=== PATIENT | female | born 1990 | race Caucasian/White ===

== ENCOUNTER 2018-03-20 19:00 | Inpatient (IN) | payer BC, MEDICAID ==
[2018-03-20] MEDS ORDERED: Oxytocin/Lactated Ringers 10 UNIT/1,000 ML BAG IV SCH (23:45)
[2018-03-20] MEDS ORDERED: Nalbuphine 20 MG/ML 1 ML Syringe IVPUSH PRN (23:57)
[2018-03-20] MEDS ORDERED: Sodium Chloride 0.9% 10 ML Syringe FLUSH PRN (23:57)
[2018-03-21] MEDS: Lactated Ringers 1,000 ML IV SCH ×4 (01:04→16:25)
[2018-03-21] MEDS ORDERED: Oxytocin/Lactated Ringers 10 UNIT/1,000 ML BAG IV SCH (01:15)
--- NOTE | 2018-03-21 07:29 | PCM.LDHP ---
L&D History of Present Illness - General Date of Service: 03/20/18 Admit Problem/Dx: Patient Status Order with Admit Dx/Problem 03/20/18 19:50 Patient Status [ADT] Routine 03/21/18 03:33 Admission Status [Patient Status] [ADT] Routine Admission Diagnosis/Problem Admission Diagnosis/Problem 03/21/18 07:17 27-year-old 1 para 0 white female with nonspecific complaints of headache, nausea, lightheadedness, dizziness with blood pressures trending in the 140s to 150s upon initial evaluation in labor and delivery. Source of Information: Patient History Limitations: Reports: No Limitations - History of Present Illness Introduction:: Juliann is a 27-year-old 1 para 0 white female who is evaluated in labor and delivery for complaints of headache, nausea, dizziness, lightheadedness in late . She is 38-2/7 weeks gestational age with an CHRISTA of 04/01/2018 as determined by a 12-1/7 week ultrasound. Patient has had some borderline blood pressures in the clinic by her history and by record. He was offered induction of labor last week but declined. Reduced evaluation January showed borderline blood pressures at that time. This time patient is found to have 1+ pitting edema, hyperreflexia and bilateral lower extremities are 3+/4. Her laboratory testing however is essentially normal. Uric acid is 4.6. LFTs are within normal limits. Findings most probably consistent with early preeclampsia. 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 Last menstrual period 06/20/2017 was approximate. CHRISTA is set by ultrasound on 09/10/2017 at 12 weeks and 1 day and is 04/01/2018. Patient was seen on a regular basis throughout the course. She had a weight gain of approximately 72 pounds. Vital signs are stable until approximately 34-35 weeks at which time they were running in the high normal borderline range. Patient underwent ultrasound at approximately 20-24 weeks which was unremarkable and showed normal growth interval. Her course has been relatively unremarkable otherwise. laboratory testing blood is AB+ with a negative antibody screen. Her first hemoglobin was 14.0 platelets are 179,000. Her RPR is nonreactive as is her appetite is B surface antigen assay. Hepatitis C is negative as is HIV. Her chlamydia and gonorrhea assays were both negative. Second trimester labs showed hemoglobin 12.5 g/dL. Platelets are 168,000. Her 1 hour glucose was normal at 117. TSH done on 01/27/2016 was 1.370normal. Her group B strep screen was negative. She does have a positive AMA titer at 1:80 with homogeneous staining pattern. Sedimentation rate was 11. QDNA antibody less than onenormal. Screen was normal. SSA and SSB assays were both negative. Allergies none Medications: 1. vitamins Past medical history: 1. Questionable autoimmune diseasenot substantiated by testing 2. Suicide attempt with overdose of Ambien Past surgical history: Unremarkable Family history mother is alive and well. Father with prediabetes. Paternal grandmother with history of depression. Maternal great-grandmother with breast cancer history. Paternal grandfather with parkinsonism. Paternal grandmother with dementia. Social history: Patient is single. She is a [id number] patient and she does not use any significant loss of alcohol, drugs or tobacco. Significant other works in the [employer]. They live in [facility]. Review of systems: In general patient reports dizziness, lightheadedness, headaches, just not feeling well. She reports some vision changes also. Skin: Negative Lungs: No infectious symptoms or shortness of breath Cardiovascular: No chest pain or exercise intolerance Breasts: No lumps, changes in size, pain, dimpling, discharge or axillary or supraclavicular concerns. Is associated . GI: Negative : Negative, baby is active. Occasional contractions. Musculoskeletal: Negative Neurological: Negative Physical exam: In general patient is well-developed, well-nourished, overweight white female in no acute distress. She is alert and oriented 3, appears pleasant and of stated age. Skin is warm and dry without lesions. Patient has 1+ pitting edema bilateral lower extremities with left greater than right. HEENT, neck and back within normal limits thyromegaly is noted. Breast exam is deferred. Lungs are clear with good breath sounds in all lung taylor. Cardiovascular exam shows regular and rhythm without murmurs. Abdomen is doing Seth for what consistent with term . Cervix is 2 cm dilated, 90% effaced, -3 station, mid position to mildly posteriorly position, soft. Baby is in cephalic presentation. Extremities show edema. Neurological exam shows 3+/4 deep tendon reflexes lower extremities. 2+/4 bilaterally upper extremities. 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: Psychiatric History: Reports: Anxiety, Depression, Other (See Below) Other Psychiatric History: insomina Social & Family History - Family History Family Medical History: Noncontributory - Tobacco Use Smoking Status *Q: Never Smoker - Recreational Drug Use Recreational Drug Use: No H&P Review of Systems - Review of Systems: Review Of Systems: See Below L&D Exam - Exam Exam: See Below - Vital Signs Weight: 104.326 kg - Patient Data Lab Results Last 24 hrs: Laboratory Results - last 24 hr 03/20/18 03/20/18 03/20/18 Range/Units 20:20 20:20 20:30 WBC 9.86 (3.98-10.04) K/mm3 RBC 3.63 L (3.98-5.22) M/mm3 Hgb 11.5 (11.2-15.7) gm/L Hct 34.1 (34.1-44.9) % MCV 93.9 (79.4-94.8) fl MCH 31.7 (25.6-32.2) pg MCHC 33.7 (32.2-35.5) g/dl RDW Std Deviation 44.6 (36.4-46.3) fL Plt Count 175 L (182-369) K/mm3 MPV 9.7 (9.4-12.3) fl Neut % (Auto) 70.9 (34.0-71.1) % Lymph % (Auto) 19.2 L (19.3-51.7) % [place] % (Auto) 8.0 (4.7-12.5) % Eos % (Auto) 1.1 (0.7-5.8) Baso % (Auto) 0.1 (0.1-1.2) % Neut # (Auto) 6.99 H (1.56-6.13) K/mm3 Lymph # (Auto) 1.89 (1.18-3.74) K/mm3 [place] # (Auto) 0.79 H (0.24-0.36) K/mm3 Eos # (Auto) 0.11 (0.04-0.36) K/mm3 Baso # (Auto) 0.01 (0.01-0.08) K/mm3 BUN 12 (7-18) mg/dL Creatinine 0.6 (0.55-1.02) mg/dL Est Cr Clr Drug Dosing 128.98 mL/min Estimated GFR (MDRD) > 60 (>60) mL/min Uric Acid 4.6 (2.6-6.0) mg/dL AST 23 (15-37) U/L ALT 27 (14-59) U/L Lactate Dehydrogenase 202 (81-234) U/L Urine Color Yellow (Yellow) Urine Appearance Slt cloudy H (Clear) Urine pH 6.0 (5.0-8.0) Ur Specific [place] 1.025 (1.005-1.030) Urine Protein Negative (Negative) Urine Glucose (UA) Negative (Negative) Urine Ketones Negative (Negative) Urine Occult Blood Trace-lysed H (Negative) Urine Nitrite Negative (Negative) Urine Bilirubin Negative (Negative) Urine Urobilinogen 0.2 (0.2-1.0) Ur Leukocyte Esterase 1+ H (Negative) Result Diagrams: 03/20/18 20:20 03/20/18 20:20 Problem List Initiated/Reviewed/Updated: Yes Orders Last 24hrs: Active Orders 24 hr Category Date Time Status Admission Status [Patient Status] [ADT] Routine ADT 03/21/18 03:33 Active Patient Status [ADT] Routine ADT 03/20/18 19:50 Active Activity as Tolerated [RC] PFP Care 03/20/18 23:57 Active Communication Order [RC] ASDIRECTED Care 03/20/18 23:57 Active Notify Provider [RC] PFP Care 03/20/18 23:57 Active Notify Provider [RC] PRN Care 03/20/18 23:57 Active Peripheral IV Care [RC] . DIRECTED Care 03/20/18 23:57 Active Vital Signs [RC] PER UNIT ROUTINE Care 03/20/18 19:50 Active RAPID PLASMA REAGIN,RPR [CHEM] Routine Lab 03/20/18 20:20 Received Lactated Ringers [Ringers, Lactated] 1,000 ml Med 03/20/18 23:45 Active IV ASDIRECTED Nalbuphine [Nubain] Med 03/20/18 23:57 Active 10 mg IVPUSH Q2H PRN Oxytocin/Lactated Ringers [Pitocin in LR 10 Units/1,000 Med 03/20/18 23:45 Active ML] 10 unit in 1,000 ml IV .CONTINUOUS Oxytocin/Lactated Ringers [Pitocin in LR 10 Units/1,000 Med 03/21/18 01:15 Active ML] 10 unit in 1,000 ml IV TITRATE Sodium Chloride 0.9% [Saline Flush] Med 03/20/18 23:57 Active 10 ml FLUSH ASDIRECTED PRN Electronic Heart Tones Ext w TOCO [WOMSER] Oth 03/20/18 23:57 Ordered Routine Electronic Heart Tones Internal [WOMSER] Per Unit Oth 03/20/18 23:57 Ordered Routine PIH Panel [OM.PC] Stat Oth 03/20/18 19:50 Ordered Peripheral IV Insertion Adult [OM.PC] Routine Oth 03/20/18 23:57 Ordered Resuscitation Status Routine Resus Stat 03/20/18 19:50 Ordered Medication Orders Lactated Ringer's (Ringers, Lactated) 1,000 mls @ 100 mls/hr IV ASDIRECTED ROCAEL Last Admin: 03/21/18 06:44 Dose: 100 mls/hr Infusion: 03/21/18 06:44 Dose: 100 mls/hr Admin: 03/21/18 01:04 Dose: 100 mls/hr Oxytocin/Lactated Ringer's (Pitocin In Lr 10 Units/1,000 Ml) 10 unit in 1,000 mls @ 500 mls/hr IV .CONTINUOUS ROCAEL Oxytocin/Lactated Ringer's (Pitocin In Lr 10 Units/1,000 Ml) 10 unit in 1,000 mls @ 12 mls/hr IV TITRATE ROCAEL; Protocol Last Titration: 03/21/18 06:07 Dose: 12 munits/min, 72 mls/hr Titration: 03/21/18 04:15 Dose: 10 munits/min, 60 mls/hr Titration: 03/21/18 03:27 Dose: 8 munits/min, 48 mls/hr Titration: 03/21/18 02:30 Dose: 6 munits/min, 36 mls/hr Titration: 03/21/18 02:03 Dose: 4 munits/min, 24 mls/hr Admin: 03/21/18 01:05 Dose: 2 munits/min, 12 mls/hr Nalbuphine HCl (Nubain) 10 mg IVPUSH Q2H PRN PRN Reason: pain Sodium Chloride (Saline Flush) 10 ml FLUSH ASDIRECTED PRN PRN Reason: Keep Vein Open Assessment/Plan Comment:: 1. 38-2/7 week intrauterine upon initial evaluation in labor and delivery for symptoms of headache, dizziness, vision changes, lightheadedness and "not feeling well ". Moderately elevated blood pressures upon initial evaluation in labor and delivery along with increased deep tendon reflexes and 1 + pitting edema findings consistent with preeclampsia without severe features. 2. Patient plans to breast-feed 3. Rubella immune 4. Patient desires epidural in labor and delivery. Plan: 1. With clinical signs and symptoms along with the trend towards elevated blood pressure seen in clinic would recommend induction of labor. The process, risks, benefits, alternatives of care and follow-up were discussed in detail patient. She appears understand and wishes to proceed. Pitocin with eventual artificial rupture membranes appears to be a very viable option of induction 2. Breast-feeding is planned for . 3. Epidural as desired per patient 4. Routine labor care. Monitor blood pressures closely.
[2018-03-21] MEDS ORDERED: fentaNYL 100 MCG/2 ML SDV EPIDUR PRN (07:35)
[2018-03-21] MEDS ORDERED: ePHEDrine 50 MG/ML SDV IVPUSH PRN (07:35)
[2018-03-21] MEDS ORDERED: diphenhydrAMINE 50 MG/ML SDV IVPUSH PRN (07:35)
--- NOTE | 2018-03-21 07:35 | PCM.SN ---
- Free Text/Narrative Note: Labor note: Patient is slowly progressing. Her cervix is now 3 cm, 100% effaced, -2 station , anterior position, cephalic presentation. Artificial rupture membranes undertaken. Resultant clear amniotic fluid large amounts. heart tones were generally reassuring. Patient is having contractions approximately every 3- 5 minutes. Pitocin was at 12 mU/mL. Assessment: 1. 38-3/7 week intrauterine , blood pressure elevation upon admission with increased deep tendon reflexes, +1 pitting edema which persists and symptoms consistent with preeclampsia without severe features Plan: 1. Continue induction of labor. Anticipate normal spontaneous vaginal delivery. 2. Epidural when necessary per patient desire
[2018-03-21] MEDS ORDERED: Bupivacaine/fentaNYL/NS 100 ML Bag EPIDUR SCH (07:45)
--- NOTE | 2018-03-21 08:05 | PCM.PREANE ---
Preanesthetic Assessment - Anesthesia/Transfusion/Family Hx Anesthesia History: No Prior Anesthesia Family History of Anesthesia Reaction: No Transfusion History: No Prior Transfusion(s) - Review of Systems General: No Symptoms Pulmonary: Cough Cardiovascular: Palpitations Gastrointestinal: Abdominal Pain (contractions) Neurological: Numbness (left and right leg with ) Other: Reports: None - Physical Assessment Pulse: 103 O2 Sat by Pulse Oximetry: 98 Respiratory Rate: 18 Blood Pressure: 134/60 Temperature: 36.3 C Height: 1.65 m Weight: 104.326 kg ASA Class: 2 Mental Status: Alert & Oriented x3 Airway Class: Mallampati = 1 Dentition: Reports: Normal Dentition Thyro-Mental Finger Breadths: 3 Mouth Opening Finger Breadths: 3 ROM/Head Extension: Full Lungs: Clear to Auscultation, Normal Respiratory Effort Cardiovascular: Regular Rate, Regular Rhythm - Lab Values: Laboratory Last Values WBC 9.86 K/mm3 (3.98-10.04) 03/20/18 20:20 RBC 3.63 M/mm3 (3.98-5.22) L 03/20/18 20:20 Hgb 11.5 gm/L (11.2-15.7) 03/20/18 20:20 Hct 34.1 % (34.1-44.9) 03/20/18 20:20 MCV 93.9 fl (79.4-94.8) 03/20/18 20:20 MCH 31.7 pg (25.6-32.2) 03/20/18 20:20 MCHC 33.7 g/dl (32.2-35.5) 03/20/18 20:20 RDW Std Deviation 44.6 fL (36.4-46.3) 03/20/18 20:20 Plt Count 175 K/mm3 (182-369) L 03/20/18 20:20 MPV 9.7 fl (9.4-12.3) 03/20/18 20:20 Neut % (Auto) 70.9 % (34.0-71.1) 03/20/18 20:20 Lymph % (Auto) 19.2 % (19.3-51.7) L 03/20/18 20:20 [place] % (Auto) 8.0 % (4.7-12.5) 03/20/18 20:20 Eos % (Auto) 1.1 (0.7-5.8) 03/20/18 20:20 Baso % (Auto) 0.1 % (0.1-1.2) 03/20/18 20:20 Neut # (Auto) 6.99 K/mm3 (1.56-6.13) H 03/20/18 20:20 Lymph # (Auto) 1.89 K/mm3 (1.18-3.74) 03/20/18 20:20 [place] # (Auto) 0.79 K/mm3 (0.24-0.36) H 03/20/18 20:20 Eos # (Auto) 0.11 K/mm3 (0.04-0.36) 03/20/18 20:20 Baso # (Auto) 0.01 K/mm3 (0.01-0.08) 03/20/18 20:20 BUN 12 mg/dL (7-18) 03/20/18 20:20 Creatinine 0.6 mg/dL (0.55-1.02) 03/20/18 20:20 Est Cr Clr Drug Dosing 128.98 mL/min 03/20/18 20:20 Estimated GFR (MDRD) > 60 mL/min (>60) 03/20/18 20:20 Uric Acid 4.6 mg/dL (2.6-6.0) 03/20/18 20:20 AST 23 U/L (15-37) 03/20/18 20:20 ALT 27 U/L (14-59) 03/20/18 20:20 Lactate Dehydrogenase 202 U/L (81-234) 03/20/18 20:20 Urine Color Yellow (Yellow) 03/20/18 20:30 Urine Appearance Slt cloudy (Clear) H 03/20/18 20:30 Urine pH 6.0 (5.0-8.0) 03/20/18 20:30 Ur Specific [place] 1.025 (1.005-1.030) 03/20/18 20:30 Urine Protein Negative (Negative) 03/20/18 20:30 Urine Glucose (UA) Negative (Negative) 03/20/18 20:30 Urine Ketones Negative (Negative) 03/20/18 20:30 Urine Occult Blood Trace-lysed (Negative) H 03/20/18 20:30 Urine Nitrite Negative (Negative) 03/20/18 20:30 Urine Bilirubin Negative (Negative) 03/20/18 20:30 Urine Urobilinogen 0.2 (0.2-1.0) 03/20/18 20:30 Ur Leukocyte Esterase 1+ (Negative) H 03/20/18 20:30 - Allergies Allergies/Adverse Reactions: Allergies Allergy/AdvReac Type Severity Reaction Status Date / Time No Known Allergies Allergy Verified 03/06/18 22:32 - Anesthesia Plan Pre-Op Medication Ordered: None - Acknowledgements Anesthesia Type Planned: Epidural Pt an Appropriate Candidate for the Planned Anesthesia: Yes Alternatives and Risks of Anesthesia Discussed w Pt/Guardian: Yes Pt/Guardian Understands and Agrees with Anesthesia Plan: Yes PreAnesthesia Questionnaire - Past Health History Medical/Surgical History: Denies Medical/Surgical History Cardiovascular History: Reports: Other (See Below) Other Cardiovascular History: Tachycardia of unknown cause Gastrointestinal History: Reports: GERD W[employer] 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: Psychiatric History: Reports: Anxiety, Depression, Other (See Below) Other Psychiatric History: insomina - SUBSTANCE USE Smoking Status *Q: Never Smoker Tobacco Use Within Last Twelve Months: No Recreational Drug Use History: No - HOME MEDS Home Medications: Home Meds FLUoxetine [PROzac] 1 tab DAILY 03/21/18 [History] Pnv No.95/Ferrous Fum/Folic AC [ Caplet] 1 each PO 03/21/18 [History] - CURRENT (IN HOUSE) MEDS Current Meds: Current Medications Diphenhydramine HCl (Benadryl) 25 mg IVPUSH Q6H PRN PRN Reason: Itching Ephedrine Sulfate (Ephedrine Sulfate) 5 mg IVPUSH ASDIRECTED PRN PRN Reason: HYPOTENTSION Fentanyl (Sublimaze) 100 mcg EPIDUR Q3H PRN PRN Reason: Pain Last Admin: 03/21/18 07:57 Dose: 100 mcg Fentanyl/Bupivacaine HCl (Fentanyl/Bupivacaine/Ns 2 Mcg-0.125% 100 Ml) 100 ml EPIDUR ASDIRECTED ROCAEL Last Admin: 03/21/18 07:57 Dose: 100 ml Lactated Ringer's (Ringers, Lactated) 1,000 mls @ 100 mls/hr IV ASDIRECTED ROCAEL Last Admin: 03/21/18 07:47 Dose: 100 mls/hr Oxytocin/Lactated Ringer's (Pitocin In Lr 10 Units/1,000 Ml) 10 unit in 1,000 mls @ 500 mls/hr IV .CONTINUOUS ROCAEL Oxytocin/Lactated Ringer's (Pitocin In Lr 10 Units/1,000 Ml) 10 unit in 1,000 mls @ 12 mls/hr IV TITRATE ROCAEL; Protocol Last Titration: 03/21/18 06:07 Dose: 12 munits/min, 72 mls/hr Nalbuphine HCl (Nubain) 10 mg IVPUSH Q2H PRN PRN Reason: pain Sodium Chloride (Saline Flush) 10 ml FLUSH ASDIRECTED PRN PRN Reason: Keep Vein Open
--- NOTE | 2018-03-21 11:03 | PCM.SN ---
- Free Text/Narrative Note: Juliann is a 27-year-old 1 now para 1001 white female who is admitted on the evening of 03/20/2018 for complaints of headache, vision changes," not feeling well", increased swelling, lightheadedness and dizziness. Blood pressures were found to be in 140s to 150s range systolically. heart tones were reassuring. Patient's hyperreflexic in the lower extremities 3+/4. Laboratory tests showed no evidence of abnormalities. Decision was made to proceed with induction of labor for suspected early preeclampsia. Procedure, risks, benefits, alternatives of care were discussed. Patient agreed to the induction. Patient labored slowly throughout the night with Pitocin. The head was brought down to about a -2 station on the morning of 03/21/2018. Artificial rupture membranes was then undertaken with resultant clear amniotic fluid. Patient progressed very quickly after that and achieved complete cervical dilation at approximately 1000 hrs. As the patient's adequate labor Pitocin was discontinued. Contractions continued every 2-3 minutes. She began pushing. The heart rate had multiple variable decelerations and a episode of bradycardia shortly before delivery. In retrospect this is felt probably due to head compression because of the rapid labor. Discussion of been held with patient concerning possible use of vacuum extraction if heart abnormalities occurred. The potential risks, benefits, returns of care including section and follow-up of both discussed with patient and her significant other. They appear to understand and wished to proceed with an attempted vacuum extraction. Epidural analgesia was used and was in very excellent effect at the time of delivery. Vacuum extractor was applied to the baby's head. No negative pressure was administered and with 1 push the baby delivered. Baby delivered in a direct occiput anterior position delivery was at 1028 and the baby was a male infant named Rigoberto nice, Apgars were 8 and 9, length was 21.0 inches, weight was 3140 g (6 pounds, 14.8 ounces). The baby was placed on mom's abdomen, cord was allowed to pulsate for over a minute and then was clamped 2 and was then cut by the baby's father. There was a first-degree perineal laceration which was repaired with 3-0 Monocryl in a routine fashion using epidural as anesthetic. Patient tolerated this well. The placenta delivered at 1036 hrs. In a Ferrera presentation. It appeared intact and complete and was discarded per patient desire. Pitocin was given after the delivery of the baby via IV to facilitate increase in uterine tone and decrease likelihood of bleeding. The estimated blood loss was 200 mL. Patient plans to breast-feed. Condition: Good.
[2018-03-21] MEDS ORDERED: Witch Hazel Medicated Pads 100/Jar TOP PRN (12:46)
[2018-03-21] MEDS ORDERED: Acetaminophen 325 MG Tab PO PRN (12:46)
[2018-03-21] MEDS ORDERED: Benzocaine/Menthol 20%-0.5% Spray 56 GM Canister TOP PRN (12:46)
[2018-03-21] MEDS ORDERED: Lanolin 100% Cream 7 GM Tube TOP PRN (12:46)
[2018-03-21] MEDS ORDERED: Docusate Sodium 100 MG Cap PO PRN (12:46)
[2018-03-21] MEDS: Ibuprofen 600 MG Tab PO PRN ×2 (16:23→21:57)
[2018-03-22] MEDS ORDERED: Calcium Carbonate 500 MG Tab.Chew PO PRN (01:19)
--- NOTE | 2018-03-22 06:07 | PCM.DCSUM1 ---
Discharge Summary - Hospital Course Free Text/Narrative:: Juliann is a 27-year-old 1 now para 1001 white female who is admitted on the evening of 03/20/2018 for complaints of headache, vision changes," not feeling well", increased swelling, lightheadedness and dizziness. Blood pressures were found to be in 140s to 150s range systolically. heart tones were reassuring. Patient's hyperreflexic in the lower extremities 3+/4. Laboratory tests showed no evidence of abnormalities. Decision was made to proceed with induction of labor for suspected early preeclampsia. Procedure, risks, benefits, alternatives of care were discussed. Patient agreed to the induction. Patient labored slowly throughout the night with Pitocin. The head was brought down to about a -2 station on the morning of 03/21/2018. Artificial rupture membranes was then undertaken with resultant clear amniotic fluid. Patient progressed very quickly after that and achieved complete cervical dilation at approximately 1000 hrs. As the patient's adequate labor Pitocin was discontinued. Contractions continued every 2-3 minutes. She began pushing. The heart rate had multiple variable decelerations and a episode of bradycardia shortly before delivery. In retrospect this is felt probably due to head compression because of the rapid labor. Discussion of been held with patient concerning possible use of vacuum extraction if heart abnormalities occurred. The potential risks, benefits, returns of care including section and follow-up of both discussed with patient and her significant other. They appear to understand and wished to proceed with an attempted vacuum extraction. Epidural analgesia was used and was in very excellent effect at the time of delivery. Vacuum extractor was applied to the baby's head. No negative pressure was administered and with 1 push the baby delivered. Baby delivered in a direct occiput anterior position delivery was at 1028 and the baby was a male infant named Rigoberto nice, Apgars were 8 and 9, length was 21.0 inches, weight was 3140 g (6 pounds, 14.8 ounces). The baby was placed on mom's abdomen, cord was allowed to pulsate for over a minute and then was clamped 2 and was then cut by the baby's father. There was a first-degree perineal laceration which was repaired with 3-0 Monocryl in a routine fashion using epidural as anesthetic. Patient tolerated this well. The placenta delivered at 1036 hrs. In a Ferrera presentation. It appeared intact and complete and was discarded per patient desire. Pitocin was given after the delivery of the baby via IV to facilitate increase in uterine tone and decrease likelihood of bleeding. The estimated blood loss was 200 mL. Patient plans to breast-feed. patient is doing well. She is breast-feeding. She is ambulating well , has minimal lochia and is voiding without concerns. She is desiring to be discharged home. Condition: Good. Diagnosis: Stroke: No - Discharge Data Discharge Date: 03/22/18 Discharge Disposition: Home, Self-Care 01 Condition: Good - Patient Instructions Diet: Regular Diet as Tolerated (Nursing diet with increased calories and calcium is recommended) Activity: As Tolerated (No intercourse or tampons until bleeding resolves) Driving: May Drive Today Showering/Bathing: May Shower (May take a bath) Notify Provider of: Fever, Increased Pain, Swelling and Redness, Nausea and/or Vomiting - Discharge Plan Home Medications: Home Meds FLUoxetine [PROzac] 1 tab DAILY 03/21/18 [History] Pnv No.95/Ferrous Fum/Folic AC [ Caplet] 1 each PO 03/21/18 [History] Acetaminophen [Tylenol] 650 mg PO Q4H PRN tablet 03/22/18 [Rx] Docusate Sodium [Colace] 100 mg PO BID PRN cap 03/22/18 [Rx] Ibuprofen [Motrin] 600 mg PO Q4H PRN tablet 03/22/18 [Rx] Referrals: Nicole Klein MD [Physician] - (Return to clinicDr. Klein1 week.) - Discharge Summary/Plan Comment DC Time >30 min.: No Discharge Summary/Plan Comment: Discharge instructions: 1. Discharge home 2. Diet, activity and follow-up discussed with patient. Recommend nursing diet with increased calories and calcium. 3. Precautions given concern increased pain, bleeding, temperature, signs/ symptoms of DVT/PE. 4. Medications per home medication was printed, discussed with and given to the patient. 5. [facility] Diagnosis: 1.Term -delivered 2. Preeclampsia without severe features Condition: Good - Patient Data Vitals - Most Recent: Last Vital Signs Temp 37.0 C 03/22/18 04:42 Pulse 119 H 03/22/18 04:42 Resp 16 03/22/18 04:42 BP 115/69 03/22/18 04:42 Pulse Ox 99 03/22/18 04:42 Weight - Most Recent: 104.326 kg I&O - Last 24 hours: Intake & Output 03/21/18 03/21/18 03/22/18 14:59 22:59 06:59 Intake Total 5000 Output Total 350 Balance 4650 Med Orders - Current: Current Medications Acetaminophen (Tylenol) 650 mg PO Q4H PRN PRN Reason: mild pain or fever Benzocaine/Menthol (Dermoplast Pain Relief [place]) 0 gm TOP ASDIRECTED PRN PRN Reason: Perineal Comfort Measure Last Admin: 03/22/18 01:17 Dose: 1 canister Calcium Carbonate/Glycine (Tums) 500 mg PO Q2H PRN PRN Reason: Indigestion Last Admin: 03/22/18 01:30 Dose: 500 mg Docusate Sodium (Colace) 100 mg PO BID PRN PRN Reason: Constipation Last Admin: 03/21/18 21:58 Dose: 100 mg Emollient Ointment (Lansinoh Hpa) 0 gm TOP ASDIRECTED PRN PRN Reason: Sore Nipples Ibuprofen (Motrin) 600 mg PO Q4H PRN PRN Reason: Mild pain or fever Last Admin: 03/21/18 21:57 Dose: 600 mg Prenat Multivit/Screven/Iron/Folic Ac ( Plus Iron) 1 each PO DAILY [facility] Genevieve Hess ([place]) 1 pad TOP ASDIRECTED PRN PRN Reason: Hemorrhoid pain Last Admin: 03/22/18 01:16 Dose: 1 canister Discontinued Medications Diphenhydramine HCl (Benadryl) 25 mg IVPUSH Q6H PRN PRN Reason: Itching Ephedrine Sulfate (Ephedrine Sulfate) 5 mg IVPUSH ASDIRECTED PRN PRN Reason: HYPOTENTSION Fentanyl (Sublimaze) 100 mcg EPIDUR Q3H PRN PRN Reason: Pain Last Admin: 03/21/18 07:57 Dose: 100 mcg Fentanyl/Bupivacaine HCl (Fentanyl/Bupivacaine/Ns 2 Mcg-0.125% 100 Ml) 100 ml EPIDUR ASDIRECTED [facility] Last Admin: 03/21/18 07:57 Dose: 100 ml Fluoxetine HCl (Prozac) 20 mg PO DAILY ROCAEL Lactated Ringer's (Ringers, Lactated) 1,000 mls @ 100 mls/hr IV ASDIRECTED ROCAEL Last Admin: 03/21/18 16:25 Dose: 100 mls/hr Oxytocin/Lactated Ringer's (Pitocin In Lr 10 Units/1,000 Ml) 10 unit in 1,000 mls @ 500 mls/hr IV .CONTINUOUS ROCAEL Oxytocin/Lactated Ringer's (Pitocin In Lr 10 Units/1,000 Ml) 10 unit in 1,000 mls @ 12 mls/hr IV TITRATE ROCAEL; Protocol Last Titration: 03/21/18 09:26 Dose: 2 munits/min, 12 mls/hr Nalbuphine HCl (Nubain) 10 mg IVPUSH Q2H PRN PRN Reason: pain Sodium Chloride (Saline Flush) 10 ml FLUSH ASDIRECTED PRN PRN Reason: Keep Vein Open
[2018-03-22] MEDS ORDERED: Prenatal Multivitamin with Calcium/Folic Acid/Iron Tab PO SCH (09:00)
[2018-03-22] MEDS ORDERED: FLUoxetine 20 MG Cap PO SCH (09:00)
== END 2018-03-22 11:50 | disposition home or self-care (01) | DRG 560 ==
LOC: JD.OBCHECK 19:00 → JD.OB 23:57 → OBSVTOIN 03-21 10:28 → JD.OB 03-21 10:29
PROVIDERS: ADMIT Obstetrics & Gynecology; ATTEND Obstetrics & Gynecology
PROC: 10907ZC Drainage of Amniotic Fluid, Therapeutic from Products of Conception, Via Natural or Artificial Opening (ICD-10-PCS; principal; 2018-03-21)
PROC: 10D07Z6 Extraction of Products of Conception, Vacuum, Via Natural or Artificial Opening (ICD-10-PCS; principal; 2018-03-21)
PROC: 3E033VJ Introduction of Other Hormone into Peripheral Vein, Percutaneous Approach (ICD-10-PCS; principal; 2018-03-21)
PROC: 0HQ9XZZ Repair Perineum Skin, External Approach (ICD-10-PCS; principal; 2018-03-21)
PROC: 3E0R3BZ Introduction of Anesthetic Agent into Spinal Canal, Percutaneous Approach (ICD-10-PCS; 2018-03-21)
PROC: 00HU33Z Insertion of Infusion Device into Spinal Canal, Percutaneous Approach (ICD-10-PCS; 2018-03-21)
DX: O14.94 Unspecified pre-eclampsia, complicating childbirth (principal); O99.344 Other mental disorders complicating childbirth; F41.9 Anxiety disorder, unspecified; F32.9 Major depressive disorder, single episode, unspecified; Z3A.38 38 weeks gestation of pregnancy; Z37.0 Single live birth; O70.0 First degree perineal laceration during delivery; O99.62 Diseases of the digestive system complicating childbirth; K21.9 Gastro-esophageal reflux disease without esophagitis
CPT/HCPCS: 36415; 51702; 59025; 59409; 81003; 82565; 83615; 84450; 84460; 84520; 84550; 85025; 86592; A9270-GY; J2590; J3010; J7120

== ENCOUNTER 2023-05-04 06:28 | Emergency (ER) | payer BC, MEDICAID ==
[2023-05-04] MEDS: Ketorolac 15 MG/ML SDV IM ONE (07:14)
[2023-05-04] MEDS: Azithromycin 250 MG Tab PO ONE (07:15)
== END 2023-05-04 07:28 | disposition home or self-care (01) ==
LOC: JD.ED 06:28
DX: J40 Bronchitis, not specified as acute or chronic (principal); M54.9 Dorsalgia, unspecified; Z79.899 Other long term (current) drug therapy
CPT/HCPCS: 81025; 96372; 99283; A9270; J1885